=== PATIENT | female | born 1995 | race Hispanic/Latino ===

== ENCOUNTER 2018-07-17 20:15 | Emergency (ER) | payer OTHER ==
--- NOTE | 2018-07-17 21:01 | ER ---
Nurse's Notes [facility] Name: Bc Bermeo Age: 22 yrs Sex: Female : 1995 Arrival Date: 07/17/2018 Time: 20:19 Bed 16 Private MD: Diagnosis: Impetigo Presentation: 07/17 20:38 Presenting complaint: Patient states: I thought I just had a rash and it has been ed1 itching for a couple of days, then when I looked I saw what looks like an infection. Transition of care: patient was not received from another setting of care. Onset of symptoms was July 14, 2018. Risk Assessment: Do you want to hurt yourself or someone else? Patient reports no desire to harm self or others. Initial Sepsis Screen: Does the patient meet any 2 criteria? No. Patient's initial sepsis screen is negative. Does the patient have a suspected source of infection? No. Patient's initial sepsis screen is negative. Care prior to arrival: None. 20:38 Method Of Arrival: Ambulatory ed1 20:38 Acuity: JAKY 4 ed1 Triage Assessment: 20:40 General: Appears in no apparent distress. Behavior is calm, cooperative. Pain: ed1 Complains of pain in right gluteal fold Pain currently is 4 out of 10 on a pain scale. Pain began 2-3 days ago. EENT: No signs and/or symptoms were reported regarding the EENT system. Neuro: Level of Consciousness is awake, alert, obeys commands, Oriented to person, place, time, situation. Cardiovascular: Denies chest pain, Heart tones S1 S2 present. Respiratory: Airway is patent Respiratory effort is even, unlabored, Respiratory pattern is regular, symmetrical, Breath sounds are clear bilaterally. GI: Abdomen is non-distended, Bowel sounds present X 4 quads. : No signs and/or symptoms were reported regarding the genitourinary system. Derm: Skin is healthy with good turgor, Skin is dry, Skin is normal, several scabbed areas with surrounding redness. Musculoskeletal: Circulation, motion, and sensation intact. Range of motion: intact in all extremities. 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 - Social history:: Smoking status: Patient/guardian denies using tobacco. - Ebola Screening: : Patient negative for fever greater than or equal to 101.5 degrees Fahrenheit, and additional compatible Ebola Virus Disease symptoms Patient denies exposure to infectious person Patient denies travel to an Ebola-affected area in the 21 days before illness onset No symptoms or risks identified at this time. Screenin:43 Abuse screen: Denies threats or abuse. Denies injuries from another. Nutritional ed1 screening: No deficits noted. Tuberculosis screening: No symptoms or risk factors identified. Fall Risk None identified. Assessment: 20:43 General: See triage assessment. ed1 21:22 Reassessment: Patient appears in no apparent distress at this time. No changes from ed1 previously documented assessment. Patient and/or family updated on plan of care and expected duration. Pain level reassessed. Patient is alert, oriented x 3, equal unlabored respirations, skin warm/dry/pink. Vital Signs: 20:40 BP 130 / 76; Pulse 95; Resp 18; Temp 97.8; Pulse Ox 100% on R/A; Weight 81.19 kg; ed1 Height 5 ft. 3 in. (160.02 cm); Pain 4/10; 21:22 BP 122 / 76; Pulse 83; Resp 17; Pulse Ox 100% on R/A; Pain 4/10; ed1 20:40 Body Mass Index 31.71 (81.19 kg, 160.02 cm) ed1 ED Course: 20:19 Patient arrived in ED. es 20:27 Rebecca Case FNP-C is PHCP. snw 20:28 Alejandro Dick MD is Attending Physician. snw 20:38 Leslee Green RN is Primary Nurse. ed1 20:39 Triage completed. ed1 20:40 Arm band placed on. ed1 20:43 Awaiting ED provider evaluation. ed1 20:43 Patient has correct armband on for positive identification. Placed in gown. Bed in low ed1 position. Call light in reach. 21:22 No provider procedures requiring assistance completed. Patient did not have IV access ed1 during this emergency room visit. Administered Medications: 21:21 Drug: Clindamycin 300 mg Route: PO; ed1 21: Follow up: Response: Medication administered at discharge. ed1 21: Drug: Hibiclens 4 % 1 application Route: Topical; Site: affected area; ed1 Outcome: 21: Discharge ordered by MD. centeno 21: Discharged to home ambulatory. ed1 : Condition: good 21: Discharge instructions given to patient, Instructed on discharge instructions, follow up and referral plans. Demonstrated understanding of instructions, follow-up care. 21:23 Patient left the ED. ed1 Signatures: Rebecca Case, PULP PLANT SUPERVISOR-C PULP PLANT SUPERVISOR-Csnw Sahra Ribera Erika, RN RN ed1
--- NOTE | 2018-07-17 21:01 | EDPHYS ---
Physician Documentation [facility] Name: Bc Bermeo Age: 22 yrs Sex: Female : 1995 Arrival Date: 07/17/2018 Time: 20:19 Bed 16 Private MD: AFTAB Physician Alejandro Dick HPI: 07/17 21:02 This 22 yrs old Female presents to ER via Ambulatory with complaints of Rash. snw 21:02 The patient's rash thought to be caused by Dermatitis. The rash is located on the right snw gluteal fold and right hamstring. The rash can be described as crusted, patchy, plaque-like. Onset: The symptoms/episode began/occurred suddenly, 3 day(s) ago, and became persistent. Severity of symptoms: At their worst the symptoms were mild in the emergency department the symptoms are unchanged. Treatment given at home: none. The patient has not experienced similar symptoms in the past. It is unknown whether or not the patient has recently seen a physician. 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 - Social history:: Smoking status: Patient/guardian denies using tobacco. - Ebola Screening: : Patient negative for fever greater than or equal to 101.5 degrees Fahrenheit, and additional compatible Ebola Virus Disease symptoms Patient denies exposure to infectious person Patient denies travel to an Ebola-affected area in the 21 days before illness onset No symptoms or risks identified at this time. ROS: 20:59 Constitutional: Negative for fever, chills, and weight loss, Eyes: Negative for injury, snw pain, redness, and discharge, ENT: Negative for injury, pain, and discharge, Neck: Negative for injury, pain, and swelling, Cardiovascular: Negative for chest pain, palpitations, and edema, Respiratory: Negative for shortness of breath, cough, wheezing, and pleuritic chest pain, Abdomen/GI: Negative for abdominal pain, nausea, vomiting, diarrhea, and constipation, Back: Negative for injury and pain, : Negative for injury, bleeding, discharge, and swelling, MS/Extremity: Negative for injury and deformity, Neuro: Negative for headache, weakness, numbness, tingling, and seizure, Psych: Negative for depression, anxiety, suicide ideation, homicidal ideation, and hallucinations. 20:59 Skin: Positive for rash, of the right hamstring and right leg. Exam: 20:58 Constitutional: This is a well developed, well nourished patient who is awake, alert, snw and in no acute distress. Head/Face: Normocephalic, atraumatic. Eyes: Pupils equal round and reactive to light, extra-ocular motions intact. Lids and lashes normal. Conjunctiva and sclera are non-icteric and not injected. Cornea within normal limits. Periorbital areas with no swelling, redness, or edema. ENT: Nares patent. No nasal discharge, no septal abnormalities noted. Tympanic membranes are normal and external auditory canals are clear. Oropharynx with no redness, swelling, or masses, exudates, or evidence of obstruction, uvula midline. Mucous membranes moist. Neck: Trachea midline, no thyromegaly or masses palpated, and no cervical lymphadenopathy. Supple, full range of motion without nuchal rigidity, or vertebral point tenderness. No Meningismus. Chest/axilla: Normal chest wall appearance and motion. Nontender with no deformity. No lesions are appreciated. Cardiovascular: Regular rate and rhythm with a normal S1 and S2. No gallops, murmurs, or rubs. Normal PMI, no JVD. No pulse deficits. Respiratory: Lungs have equal breath sounds bilaterally, clear to auscultation and percussion. No rales, rhonchi or wheezes noted. No increased work of breathing, no retractions or nasal flaring. Abdomen/GI: Soft, non-tender, with normal bowel sounds. No distension or tympany. No guarding or rebound. No evidence of tenderness throughout. Back: No spinal tenderness. No costovertebral tenderness. Full range of motion. MS/ Extremity: Pulses equal, no cyanosis. Neurovascular intact. Full, normal range of motion. Neuro: Awake and alert, GCS 15, oriented to person, place, time, and situation. Cranial nerves II-XII grossly intact. Motor strength 5/5 in all extremities. Sensory grossly intact. Cerebellar exam normal. Normal gait. Psych: Awake, alert, with orientation to person, place and time. Behavior, mood, and affect are within normal limits. 20:58 Skin: Appearance: normal except for affected area, impetigo, on the right gluteal fold and right hamstring. Vital Signs: 20:40 BP 130 / 76; Pulse 95; Resp 18; Temp 97.8; Pulse Ox 100% on R/A; Weight 81.19 kg; ed1 Height 5 ft. 3 in. (160.02 cm); Pain 4/10; 21:22 BP 122 / 76; Pulse 83; Resp 17; Pulse Ox 100% on R/A; Pain 4/10; ed1 20:40 Body Mass Index 31.71 (81.19 kg, 160.02 cm) ed1 MDM: 20:53 Patient medically screened. snw 21:00 Data reviewed: vital signs, nurses notes. Data interpreted: Pulse oximetry: on room air snw is 100 %. Interpretation: normal. Counseling: I had a detailed discussion with the patient and/or guardian regarding: the historical points, exam findings, and any diagnostic results supporting the discharge/admit diagnosis, the need for outpatient follow up, to return to the emergency department if symptoms worsen or persist or if there are any questions or concerns that arise at home. Special discussion: I discussed in detail with the patient the higher chance of wound infection based on his presenting history. Based on the history and exam findings, there is no indication for further emergent testing or inpatient evaluation. I discussed with the patient/guardian the need to see the primary care provider for further evaluation of the symptoms. Administered Medications: 21:21 Drug: Clindamycin 300 mg Route: PO; ed1 21:21 Follow up: Response: Medication administered at discharge. ed1 21:21 Drug: Hibiclens 4 % 1 application Route: Topical; Site: affected area; ed1 Disposition: 07/17/18 21:01 Discharged to Home. Impression: Impetigo. - Condition is Stable. - Discharge Instructions: Impetigo, Pediatric. - Prescriptions for Clindamycin HCl 300 mg Oral Capsule - take 1 capsule by ORAL route every 6 hours for 10 days; 40 capsule. - Medication Reconciliation Form, Thank You Letter, Antibiotic Education, Prescription Opioid Use form. - Follow up: Private Physician; When: 1 week; Reason: Recheck today's complaints, Continuance of care, Re-evaluation by your physician. Follow up: Emergency Department; When: As needed; Reason: Worsening of condition. Signatures: Rebecca Case, NASRA-C LEISURE STUDIES PROFESSOR-Csnw Leslee Green, RN RN ed1 Corrections: (The following items were deleted from the chart) 21:23 21:01 07/17/2018 21:01 Discharged to Home. Impression: Impetigo. Condition is Stable. ed1 Forms are Medication Reconciliation Form, Thank You Letter, Antibiotic Education, Prescription Opioid Use. Follow up: Private Physician; When: 1 week; Reason: Recheck today's complaints, Continuance of care, Re-evaluation by your physician. Follow up: Emergency Department; When: As needed; Reason: Worsening of condition. snw
[2018-07-17] MEDS ORDERED: CLINDAMYCIN HCL 150 MG CAP ONE (21:34)
== END 2018-07-17 21:23 | disposition home or self-care (01) ==
LOC: ER 20:15
DX: L01.00 Impetigo, unspecified (principal); Z91.013 Allergy to seafood
CPT/HCPCS: 99283

== ENCOUNTER 2018-08-16 09:25 | Emergency (ER) | payer OTHER ==
[2018-08-16] MEDS ORDERED: IBUPROFEN 400 MG TAB ONE (10:10)
[2018-08-16] MEDS ORDERED: NA CHLORIDE 0.9% 1,000 ML ONE (10:10)
[2018-08-16] MEDS ORDERED: DEXAMETHASONE 10 MG/ML VIAL ONE (10:10)
--- NOTE | 2018-08-16 10:41 | ER ---
Nurse's Notes [facility] Name: Bc Bermeo Age: 22 yrs Sex: Female : 1995 Arrival Date: 08/16/2018 Time: 09:28 Bed 19 Private MD: Alonzo Arthur Diagnosis: Streptococcal pharyngitis Presentation: 08/16 09:41 Presenting complaint: Patient states: sore throat and body aches since yesterday around em 0200, reports subjective fever and nausea, denies vomiting or diarrhea. Transition of care: patient was not received from another setting of care. Onset of symptoms was August 15, 2018. Risk Assessment: Do you want to hurt yourself or someone else? Patient reports no desire to harm self or others. Initial Sepsis Screen: Does the patient meet any 2 criteria? HR > 90 bpm. No. Patient's initial sepsis screen is negative. Does the patient have a suspected source of infection? Yes: Other: throat. Care prior to arrival: None. 09:41 Method Of Arrival: Ambulatory em 09:47 Acuity: JAKY 3 ss PRIVATE INVESTIGATOR: 09:43 LMP 08/14/2018 em Historical: - Allergies: 09:43 SEAFOOD; em - Home Meds: 09:43 None [Active]; em - PMHx: 09:43 Asthma; HYPOGLYCEMIA; em - PSHx: 09:43 Appendectomy; em - Immunization history:: Adult Immunizations up to date. - Social history:: Smoking status: Patient/guardian denies using tobacco. - Ebola Screening: : Patient negative for fever greater than or equal to 101.5 degrees Fahrenheit, and additional compatible Ebola Virus Disease symptoms Patient denies exposure to infectious person Patient denies travel to an Ebola-affected area in the 21 days before illness onset No symptoms or risks identified at this time. Screenin:45 Abuse screen: Denies threats or abuse. Nutritional screening: No deficits noted. em Tuberculosis screening: No symptoms or risk factors identified. Fall Risk None identified. Assessment: 09:43 General: Appears in no apparent distress. comfortable, Behavior is calm, cooperative, em Reports fever for 12-24 hours. Pain: Complains of pain in throat Pain currently is 9 out of 10 on a pain scale. Neuro: Level of Consciousness is awake, alert, obeys commands, Oriented to person, place, time, situation. Cardiovascular: Capillary refill < 3 seconds Patient's skin is warm and dry. Respiratory: Airway is patent Respiratory effort is even, unlabored, Respiratory pattern is regular, symmetrical, Breath sounds are clear bilaterally. Denies cough, shortness of breath. GI: Abdomen is flat, Reports nausea, Patient currently denies diarrhea, vomiting. EENT: Oral mucosa is moist. Throat is reddened has enlarged tonsils. Derm: Skin is intact, is healthy with good turgor, Skin is pink, warm \T\ dry. Musculoskeletal: Capillary refill < 3 seconds, Range of motion: intact in all extremities. 10:46 Reassessment: Patient appears in no apparent distress at this time. Patient and/or em family updated on plan of care and expected duration. Pain level reassessed. Patient is alert, oriented x 3, equal unlabored respirations, skin warm/dry/pink. Patient states feeling better. 11:00 Reassessment: became nauseated after Rocephin IV, provider notified, new medication em orders received. Vital Signs: 09:43 BP 123 / 85; Pulse 131; Resp 20; Temp 100.0(O); Pulse Ox 100% on R/A; Weight 81.65 kg; em Height 5 ft. 0 in. (152.40 cm); Pain 9/10; 10:48 BP 104 / 72; Pulse 106; Resp 18; Pulse Ox 99% on R/A; em 09:43 Body Mass Index 35.15 (81.65 kg, 152.40 cm) em ED Course: 09:28 Patient arrived in ED. as 09:28 Alonzo Arthur MD is Private Physician. as 09:35 [facility] kb 09:35 Kolby Hatch MD is Attending Physician. kb 09:36 Negro Chung LVN is Primary Nurse. em 09:43 Arm band placed on. em 09:45 Patient has correct armband on for positive identification. Bed in low position. Call em light in reach. Adult w/ patient. Pulse ox on. NIBP on. 09:47 Triage completed. ss 10:00 Initial lab(s) drawn, by me, sent to lab. Strep swab sent to lab. Inserted saline lock: em 22 gauge in right antecubital area, using aseptic technique. Blood collected. 11:22 No provider procedures requiring assistance completed. IV discontinued, intact, em bleeding controlled, No redness/swelling at site. Pressure dressing applied. Administered Medications: 10:05 Drug: Decadron - Dexamethasone 10 mg Route: IVP; Site: right antecubital; ss 10:50 Follow up: Response: No adverse reaction; Marked relief of symptoms; Pain is decreased em 10:05 Drug: NS 0.9% 1000 ml Route: IV; Rate: 1000 ml; Site: right antecubital; ss 11:09 Follow up: IV Status: Completed infusion; IV Intake: 1000ml em 10:05 Drug: Ibuprofen 800 mg Route: PO; ss 11:09 Follow up: Response: No adverse reaction; Marked relief of symptoms; Pain is decreased em 10:57 Drug: Rocephin 1 grams Route: IV; Rate: calculated rate; Site: right antecubital; ss 11:10 Follow up: Response: No adverse reaction; IV Status: Completed infusion; IV Intake: 10mlem 11:05 Not Given (Patient Refused): GI Cocktail without - (Maalox Suspension 30 ml, ss Lidocaine Liquid 2 % 15 ml) PO once 11:05 Drug: Zofran 4 mg Route: IVP; Site: right antecubital; ss 11:21 Follow up: Response: No adverse reaction; Nausea is decreased em Intake: 11:09 IV: 1000ml; Total: 1000ml. em 11:10 IV: 10ml; Total: 1010ml. em Outcome: 10:40 Discharge ordered by MD. larsen 11:25 Discharged to home ambulatory. em 11:25 Condition: good 11:25 Discharge instructions given to patient, Instructed on discharge instructions, follow up and referral plans. medication usage, Demonstrated understanding of instructions, follow-up care, medications, Prescriptions given X 1. 11:25 Patient left the ED. em Signatures: Janis Alatorre, NASRA-C SPECIAL EDUCATION EDUCATIONAL ASSISTANT-Negro Rodney, MATHEMATICAL SCIENCES PROFESSOR MATHEMATICAL SCIENCES PROFESSOR em Karlene Craft Shelby, RN RN ss
--- NOTE | 2018-08-16 10:41 | EDPHYS ---
Physician Documentation [facility] Name: Bc Bermeo Age: 22 yrs Sex: Female : 1995 Arrival Date: 08/16/2018 Time: 09:28 Bed 19 Private MD: Alonzo Arthur ED Physician Kolby Hatch HPI: 08/16 10:15 This 22 yrs old Female presents to ER via Ambulatory with complaints of Sore kb Throat, Pain All Over. 10:15 The patient presents with sore throat. The patient describes throat pain as constant. kb Onset: The symptoms/episode began/occurred yesterday. Severity of symptoms: At their worst the symptoms were moderate, in the emergency department the symptoms are unchanged. Modifying factors: The symptoms are alleviated by nothing, the symptoms are aggravated by swallowing, Patient's oral intake status: limited fluid intake, limited food intake, unaware of sick contact. Associated signs and symptoms: Pertinent positives: fever, flu-like symptoms, myalgias, Sore throat. The patient has not experienced similar symptoms in the past. The patient has not recently seen a physician. HOME HEALTH RN: 09:43 LMP 08/14/2018 em Historical: - Allergies: 09:43 SEAFOOD; em - Home Meds: 09:43 None [Active]; em - PMHx: 09:43 Asthma; HYPOGLYCEMIA; em - PSHx: 09:43 Appendectomy; em - Immunization history:: Adult Immunizations up to date. - Social history:: Smoking status: Patient/guardian denies using tobacco. - Ebola Screening: : Patient negative for fever greater than or equal to 101.5 degrees Fahrenheit, and additional compatible Ebola Virus Disease symptoms Patient denies exposure to infectious person Patient denies travel to an Ebola-affected area in the 21 days before illness onset No symptoms or risks identified at this time. ROS: 10:13 Neck: Negative for injury, pain, and swelling, Cardiovascular: Negative for chest pain, kb palpitations, and edema, Respiratory: Negative for shortness of breath, cough, wheezing, and pleuritic chest pain, Abdomen/GI: Negative for abdominal pain, nausea, vomiting, diarrhea, and constipation, Back: Negative for injury and pain, MS/Extremity: Negative for injury and deformity, Skin: Negative for injury, rash, and discoloration. 10:13 Constitutional: Positive for body aches, chills, fatigue, fever, malaise, Negative for poor PO intake, weight loss. 10:13 ENT: Positive for sore throat. 10:13 Neuro: Positive for headache. Exam: 10:14 Constitutional: This is a well developed, well nourished patient who is awake, alert, kb and in no acute distress. Head/Face: Normocephalic, atraumatic. Chest/axilla: Normal chest wall appearance and motion. Nontender with no deformity. No lesions are appreciated. Cardiovascular: Regular rate and rhythm with a normal S1 and S2. No gallops, murmurs, or rubs. Normal PMI, no JVD. No pulse deficits. Respiratory: Lungs have equal breath sounds bilaterally, clear to auscultation and percussion. No rales, rhonchi or wheezes noted. No increased work of breathing, no retractions or nasal flaring. Abdomen/GI: Soft, non-tender, with normal bowel sounds. No distension or tympany. No guarding or rebound. No evidence of tenderness throughout. Skin: Warm, dry with normal turgor. Normal color with no rashes, no lesions, and no evidence of cellulitis. MS/ Extremity: Pulses equal, no cyanosis. Neurovascular intact. Full, normal range of motion. Neuro: Awake and alert, GCS 15, oriented to person, place, time, and situation. Cranial nerves II-XII grossly intact. Motor strength 5/5 in all extremities. Sensory grossly intact. Cerebellar exam normal. Normal gait. 10:14 ENT: Posterior pharynx: Airway: normal, Tonsils: bilaterally enlarged, with erythema, Uvula: normal, midline, swelling, that is marked, erythema, that is marked. Vital Signs: 09:43 BP 123 / 85; Pulse 131; Resp 20; Temp 100.0(O); Pulse Ox 100% on R/A; Weight 81.65 kg; em Height 5 ft. 0 in. (152.40 cm); Pain 9/10; 10:48 BP 104 / 72; Pulse 106; Resp 18; Pulse Ox 99% on R/A; em 09:43 Body Mass Index 35.15 (81.65 kg, 152.40 cm) em MDM: 09:36 Patient medically screened. kb 10:13 Data reviewed: vital signs, nurses notes. Data interpreted: Pulse oximetry: on room air kb is 100 %. Interpretation: normal. 10:39 Counseling: I had a detailed discussion with the patient and/or guardian regarding: the kb historical points, exam findings, and any diagnostic results supporting the discharge/admit diagnosis, lab results, the need for outpatient follow up, a family practitioner, to return to the emergency department if symptoms worsen or persist or if there are any questions or concerns that arise at home. 08/16 09:53 Order name: Strep; Complete Time: 10:25 kb 08/16 09:53 Order name: [place] Screen Profile; Complete Time: 10:39 kb 08/16 08:53 Order name: IV Start; Complete Time: 10: kb Administered Medications: 10:05 Drug: Decadron - Dexamethasone 10 mg Route: IVP; Site: right antecubital; ss 10:50 Follow up: Response: No adverse reaction; Marked relief of symptoms; Pain is decreased em 10:05 Drug: NS 0.9% 1000 ml Route: IV; Rate: 1000 ml; Site: right antecubital; ss 11:09 Follow up: IV Status: Completed infusion; IV Intake: 1000ml em 10:05 Drug: Ibuprofen 800 mg Route: PO; ss 11:09 Follow up: Response: No adverse reaction; Marked relief of symptoms; Pain is decreased em 10:57 Drug: Rocephin 1 grams Route: IV; Rate: calculated rate; Site: right antecubital; ss 11:10 Follow up: Response: No adverse reaction; IV Status: Completed infusion; IV Intake: 10mlem 11:05 Not Given (Patient Refused): GI Cocktail without - (Maalox Suspension 30 ml, ss Lidocaine Liquid 2 % 15 ml) PO once 11:05 Drug: Zofran 4 mg Route: IVP; Site: right antecubital; ss 11:21 Follow up: Response: No adverse reaction; Nausea is decreased em Disposition: 15:10 Co-signature as Attending Physician, Kolby Hatch MD. rn Disposition: 08/16/18 10:40 Discharged to Home. Impression: Streptococcal pharyngitis. - Condition is Stable. - Discharge Instructions: Strep Throat, Sgar-vk-Fyni. - Prescriptions for Augmentin 875- 125 mg Oral Tablet - take 1 tablet by ORAL route every 12 hours for 10 days; 20 tablet. - Work release form, Medication Reconciliation Form, Thank You Letter, Antibiotic Education, Prescription Opioid Use form. - Follow up: Emergency Department; When: As needed; Reason: Worsening of condition. Follow up: Private Physician; When: 2 - 3 days; Reason: Recheck today's complaints, Continuance of care, Re-evaluation by your physician. Signatures: Dispatcher [employer] EDVT Janis Alatorre, NITROGLYCERIN NEUTRALIZER-C NITROGLYCERIN NEUTRALIZER-Negro Rodney, PULMONARY FUNCTION TECHNOLOGIST PULMONARY FUNCTION TECHNOLOGIST em Kolby Hatch MD MD rn Marimar Castillo RN RN ss Corrections: (The following items were deleted from the chart) 11:25 10:40 08/16/2018 10:40 Discharged to Home. Impression: Streptococcal pharyngitis. em Condition is Stable. Forms are Medication Reconciliation Form, Thank You Letter, Antibiotic Education, Prescription Opioid Use. Follow up: Emergency Department; When: As needed; Reason: Worsening of condition. Follow up: Private Physician; When: 2 - 3 days; Reason: Recheck today's complaints, Continuance of care, Re-evaluation by your physician. kb
[2018-08-16] MEDS ORDERED: MAGNE/ALUM HYDROXD 30 ML UCUP ONE (10:43)
[2018-08-16] MEDS ORDERED: LIDOCAINE VISCOUS 2% SOLN 15 ML UDC ONE (10:43)
[2018-08-16] MEDS ORDERED: CEFTRIAXONE/SWI 1gm 1 GM/10 ML SYR ONE (11:08)
[2018-08-16] MEDS ORDERED: ONDANSETRON 4 MG/2 ML VIAL ONE (11:17)
== END 2018-08-16 11:25 | disposition home or self-care (01) ==
LOC: ER 09:25
DX: J02.0 Streptococcal pharyngitis (principal); J45.909 Unspecified asthma, uncomplicated; Z91.013 Allergy to seafood
CPT/HCPCS: 36415; 86308; 87081; 96361; 96374; 96375; 99284; J0696; J1100; J2405; J7030

== ENCOUNTER 2020-06-24 08:39 | Emergency (ER) | payer BC, OTHER ==
[2020-06-24 09:11] LABS: Urine Blood 2+ (Negative); Urine Glucose Negative (Negative); Urine Protein Trace (Negative); Urine Specific Gravity >=1.030 (1.005-1.030); Urine pH 5.5 (5.0-7.0)
[2020-06-24 09:14] LABS: Absolute Lymphocytes (CBC) 1.6 K/uL (0.7-4.9); Basophils % 0.9 % (0-1.3); Lymphocytes % 16.4 % (15.3-44.8); MPV 8.8 fL (7.6-11.3); RBC Red Blood Cell Count 4.37 M/uL (3.86-4.86)
[2020-06-24] MEDS ORDERED: NA CHLORIDE 0.9% 1,000 ML ONE (09:15)
[2020-06-24 09:47] LABS: Potassium 3.6 mmol/L (3.5-5.1)
--- NOTE | 2020-06-24 10:14 | EDPHYS ---
Physician Documentation [facility] Name: Bc Bermeo Age: 24 yrs Sex: Female : 1995 Arrival Date: 06/24/2020 Time: 08:43 Bed 15 Private MD: ED Physician Sherif Hinds HPI: 06/24 10:07 This 24 yrs old Female presents to ER via Ambulatory with complaints of omar Vaginal Bleeding, + Preg <12wks. 10:07 The patient presents to the emergency department with vaginal bleeding, that is light. omar The estimated gestational age is 6 weeks. course: care: private OB physician, Dr. PERRY. Associated signs and symptoms: The patient has no apparent associated signs or symptoms. The patient has not experienced similar symptoms in the past. 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 - Social history:: Smoking status: Patient denies any tobacco usage or history of. ROS: 10:08 Constitutional: Negative for fever, chills, and weight loss, Eyes: Negative for injury, omar pain, redness, and discharge, ENT: Negative for injury, pain, and discharge, Neck: Negative for injury, pain, and swelling, Cardiovascular: Negative for chest pain, palpitations, and edema, Respiratory: Negative for shortness of breath, cough, wheezing, and pleuritic chest pain, Back: Negative for injury and pain, : Negative for injury, bleeding, discharge, and swelling, MS/Extremity: Negative for injury and deformity, Skin: Negative for injury, rash, and discoloration, Neuro: Negative for headache, weakness, numbness, tingling, and seizure, Psych: Negative for depression, anxiety, suicide ideation, homicidal ideation, and hallucinations, Allergy/Immunology: Negative for hives, rash, and allergies, Endocrine: Negative for neck swelling, polydipsia, polyuria, polyphagia, and marked weight changes, Hematologic/Lymphatic: Negative for swollen nodes, abnormal bleeding, and unusual bruising. 10:08 : Positive for vaginal bleeding. Exam: 10:08 Constitutional: This is a well developed, well nourished patient who is awake, alert, omar and in no acute distress. Head/Face: Normocephalic, atraumatic. Eyes: Pupils equal round and reactive to light, extra-ocular motions intact. Lids and lashes normal. Conjunctiva and sclera are non-icteric and not injected. Cornea within normal limits. Periorbital areas with no swelling, redness, or edema. ENT: Nares patent. No nasal discharge, no septal abnormalities noted. Tympanic membranes are normal and external auditory canals are clear. Oropharynx with no redness, swelling, or masses, exudates, or evidence of obstruction, uvula midline. Mucous membranes moist. Neck: Trachea midline, no thyromegaly or masses palpated, and no cervical lymphadenopathy. Supple, full range of motion without nuchal rigidity, or vertebral point tenderness. No Meningismus. Chest/axilla: Normal chest wall appearance and motion. Nontender with no deformity. No lesions are appreciated. Cardiovascular: Regular rate and rhythm with a normal S1 and S2. No gallops, murmurs, or rubs. Normal PMI, no JVD. No pulse deficits. Respiratory: Lungs have equal breath sounds bilaterally, clear to auscultation and percussion. No rales, rhonchi or wheezes noted. No increased work of breathing, no retractions or nasal flaring. Abdomen/GI: Soft, non-tender, with normal bowel sounds. No distension or tympany. No guarding or rebound. No evidence of tenderness throughout. Back: No spinal tenderness. No costovertebral tenderness. Full range of motion. Skin: Warm, dry with normal turgor. Normal color with no rashes, no lesions, and no evidence of cellulitis. MS/ Extremity: Pulses equal, no cyanosis. Neurovascular intact. Full, normal range of motion. Neuro: Awake and alert, GCS 15, oriented to person, place, time, and situation. Cranial nerves II-XII grossly intact. Motor strength 5/5 in all extremities. Sensory grossly intact. Cerebellar exam normal. Normal gait. Psych: Awake, alert, with orientation to person, place and time. Behavior, mood, and affect are within normal limits. Vital Signs: 08:49 BP 119 / 71; Pulse 103; Resp 14; Pulse Ox 100% on R/A; Weight 79.83 kg; Height 5 ft. 3 ss in. (160.02 cm); Pain 0/10; 10:57 BP 122 / 76; Pulse 98; Resp 16; Pulse Ox 99% ; vg1 08:49 Body Mass Index 31.18 (79.83 kg, 160.02 cm) ss MDM: 08:53 Patient medically screened. [facility] 06/24 08:54 Order name: Quantitative Hcg; Complete Time: 10:07 omar 06/24 08:54 Order name: Abo/rh Typing; Complete Time: 10:07 oamr 06/24 08:54 Order name: Basic Metabolic Panel; Complete Time: 10:07 omar 06/24 08:54 Order name: CBC with Diff; Complete Time: 10:07 omar 06/24 09:11 Order name: Urine Dipstick-Ancillary; Complete Time: 10:07 EDMS 06/24 09:37 Order name: Urine --Ancillary (enter results); Complete Time: 10:07 eb 06/24 08:54 Order name: Urine Test (obtain specimen); Complete Time: 09:50 omar 06/24 08:54 Order name: IV Saline Lock; Complete Time: 09:50 [facility] 06/24 08:54 Order name: Labs collected and sent; Complete Time: 09:50 omar 06/24 08:54 Order name: NPO; Complete Time: 09:50 [facility] 06/24 08:54 Order name: Urine Dipstick-Ancillary (obtain specimen); Complete Time: 09:51 [facility] 06/24 08:54 Order name: US Transvaginal Ob [facility] 06/24 10:20 Order name: ABO/RH no charge EDMS Administered Medications: 09:00 Drug: NS 0.9% 1000 ml Route: IV; Rate: 1 bolus; Site: right antecubital; jl7 10:58 Follow up: IV Status: Completed infusion; IV Intake: 1000ml vg1 Point of Care Testing: Urine : 09:00 hCG Reading: Positive; Control Reading: Positive; jl7 Disposition: 06/24/20 10:13 Discharged to Home. Impression: Threatened - 6 Weeks. - Condition is Stable. - Discharge Instructions: Threatened Miscarriage, Vaginal Bleeding During , First Trimester, First Trimester of , [id number], First Trimester of , Threatened Miscarriage, Bcsx-mi-Jmwn, Pelvic Rest. - Prescriptions for Vitamin 27- 0.8 mg Oral Tablet - take 1 tablet by ORAL route once daily; 30 tablet. - Medication Reconciliation Form, Thank You Letter, Antibiotic Education, Prescription Opioid Use form. - Follow up: Eber Perry MD; When: 2 - 3 days; Reason: Recheck today's complaints, Continuance of care, Re-evaluation by your physician. - Problem is new. - Symptoms have improved. Signatures: Dispatcher [employer] EDMS Sherif Hinds MD MD cha Smirch, Shelby, RN RN ss Erin Fields RN RN jl7 Radha Eden RN RN vg1 Corrections: (The following items were deleted from the chart) 10:58 10:13 06/24/2020 10:13 Discharged to Home. Impression: Threatened - 6 Weeks. vg1 Condition is Stable. Forms are Medication Reconciliation Form, Thank You Letter, Antibiotic Education, Prescription Opioid Use. Follow up: Eber Perry; When: 2 - 3 days; Reason: Recheck today's complaints, Continuance of care, Re-evaluation by your physician. Problem is new. Symptoms have improved. omar
--- NOTE | 2020-06-24 10:14 | ER ---
Nurse's Notes [facility] Name: Bc Bermeo Age: 24 yrs Sex: Female : 1995 Arrival Date: 06/24/2020 Time: 08:43 Bed 15 Private MD: Diagnosis: Threatened -6 Weeks Presentation: 06/24 08:49 Chief complaint: Patient states: Vaginal bleeding "like a period" that started ss yesterday afternoon. Pt reports that she is 6 weeks . Coronavirus screen: Client denies travel out of the [place] in the last 14 days. Ebola Screen: Patient denies exposure to infectious person. Patient denies travel to an Ebola-affected area in the 21 days before illness onset. Initial Sepsis Screen: Does the patient meet any 2 criteria? No. Patient's initial sepsis screen is negative. Does the patient have a suspected source of infection? No. Patient's initial sepsis screen is negative. Risk Assessment: Do you want to hurt yourself or someone else? Patient reports no desire to harm self or others. Onset of symptoms was June 23, 2020. 08:49 Method Of Arrival: Ambulatory ss 08:49 Acuity: JAKY 3 ss Triage Assessment: 09:00 General: Appears in no apparent distress. 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 - Social history:: Smoking status: Patient denies any tobacco usage or history of. Screenin:00 Abuse screen: Denies threats or abuse. Denies injuries from another. Nutritional jl7 screening: No deficits noted. Tuberculosis screening: No symptoms or risk factors identified. Fall Risk IV access (20 points). Total Miles Fall Scale indicates No Risk (0-24 pts). Assessment: 09:00 Obstetrical Assessment: General assessment: awake and alert, Patient reports abdominal jl7 cramping. General: Appears in no apparent distress. uncomfortable, Behavior is calm, cooperative, appropriate for age. Pain: Complains of pain in right lower quadrant and left lower quadrant Pain does not radiate. Pain currently is 2 out of 10 on a pain scale. Quality of pain is described as crampy, Pain began 1 day ago. Is continuous. Neuro: Level of Consciousness is awake, alert, obeys commands, Oriented to person, place, time, situation. Cardiovascular: Patient's skin is warm and dry. Respiratory: Airway is patent Respiratory effort is even, unlabored, Respiratory pattern is regular, symmetrical. GI: Abdomen is non-distended. : Urine is clear, Reports vaginal bleeding that is bright red, Denies burning with urination. Derm: Skin is pink, warm \\T\\ dry. 10:57 Reassessment: Patient appears in no apparent distress at this time. Patient and/or vg1 family updated on plan of care and expected duration. Pain level reassessed. Patient is alert, oriented x 3, equal unlabored respirations, skin warm/dry/pink. Vital Signs: 08:49 BP 119 / 71; Pulse 103; Resp 14; Pulse Ox 100% on R/A; Weight 79.83 kg; Height 5 ft. 3 ss in. (160.02 cm); Pain 0/10; 10:57 BP 122 / 76; Pulse 98; Resp 16; Pulse Ox 99% ; vg1 08:49 Body Mass Index 31.18 (79.83 kg, 160.02 cm) ss Vitals: 09:48 Heart Tones N/A. jl7 ED Course: 08:43 Patient arrived in ED. ds1 08:50 Triage completed. ss 08:51 Arm band placed on right wrist. ss 08:53 Sherif Hnids MD is Attending Physician. omar 08:56 Erin Fields RN is Primary Nurse. jl7 09:00 Patient has correct armband on for positive identification. Placed in gown. Bed in low jl7 position. Call light in reach. Side rails up X 1. Pulse ox on. NIBP on. Warm blanket given. 09:00 Initial lab(s) drawn, by me, sent to lab. T\\T\\S collected, blood band applied to patient. jl7 Inserted saline lock: 20 gauge in right antecubital area, using aseptic technique. Blood collected. 10:03 Transvaginal Ob In Process Unspecified. EDMO 10:13 Eber Perry MD is Referral Physician. [facility] 10:58 No provider procedures requiring assistance completed. IV discontinued, intact, vg1 bleeding controlled, No redness/swelling at site. Pressure dressing applied. Administered Medications: 09:00 Drug: NS 0.9% 1000 ml Route: IV; Rate: 1 bolus; Site: right antecubital; 7 10:58 Follow up: IV Status: Completed infusion; IV Intake: 1000ml vg1 Point of Care Testing: Urine : 09:00 hCG Reading: Positive; Control Reading: Positive; jl7 Intake: 10:58 IV: 1000ml; Total: 1000ml. vg1 Outcome: 10:13 Discharge ordered by . [facility] 10:58 Discharged to home ambulatory. vg1 10:58 Condition: stable 10:58 Discharge instructions given to patient, Instructed on discharge instructions, follow up and referral plans. medication usage, Demonstrated understanding of instructions, follow-up care, medications, Prescriptions given X 1. 10:58 Patient left the ED. vg1 Signatures: Dispatcher [employer] EDMO Sherif Hinds MD MD cha Sanford, Demi ds1 Marimar Castillo, Erin Ghosh RN, RN RN [email or web address] Radha Eden, RN RN vg1
--- NOTE | 2020-06-24 10:36 | RAD REPORT ---
EXAM DESCRIPTION: US - Transvaginal OB - 06/24/2020 10:04 am CLINICAL HISTORY: Abd cramping, ;Abd pain COMPARISON: No comparisons FINDINGS: A single gestational sac is seen within the uterus. The shape of the sac is within normal limits for gestational age. Within the sac is a single pole with crown-rump length of 4 mm, cor relating to estimated gestational age of 6 weeks 1 day. Estimated date of delivery is 02/16/2021. Heart rate is 97 BPM. The placenta is not yet developed due to early gestational age. There is a 9 x 8 mm inferior subchori onic bleed. The maternal adnexa and ovaries are within normal limits. Normal Doppler blood flow was demonstrated to both ovaries. IMPRESSION: Single live early intrauterine gestation with estimated gestational age of 6 weeks 1 day , VIDA 02/16/2021. Small 9 x 8 mm inferior subchorionic bleed.
[2020-06-24 11:08] VITALS: BP 122/76; O2SAT 99
== END 2020-06-24 10:58 | disposition home or self-care (01) ==
LOC: ER 08:39
DX: O20.0 Threatened abortion (principal); Z3A.01 Less than 8 weeks gestation of pregnancy; O99.511 Diseases of the respiratory system complicating pregnancy, first trimester; J45.909 Unspecified asthma, uncomplicated
CPT/HCPCS: 85025; 80048; 36415; 86900; 81025; 86901; 84702; 81003; 76817; J7030; 96360; 96361; 99284

== ENCOUNTER 2020-12-05 16:20 | Inpatient (IN) | payer BC ==
[2020-12-05] MEDS ORDERED: BUTORPHANOL 1 MG/ML INJ IV PRN (16:52)
[2020-12-05] MEDS ORDERED: ZOLPIDEM TARTRATE 10 MG TABLET PO PRN (16:52)
[2020-12-05] MEDS ORDERED: PROMETHAZINE INJ 25 MG/ML AMP IM PRN (17:19)
--- NOTE | 2020-12-05 17:35 | RAD REPORT ---
EXAM DESCRIPTION: US - OB Limited - 12/05/2020 5:20 pm CLINICAL HISTORY: . Possible demise. COMPARISON: June 2020 FINDINGS: A limited examination performed to assess viability. Breech presentation Cardiac activity is not identified IMPRESSION: demise
[2020-12-05] MEDS ORDERED: Ringers Lactate 1,000 ML IV SCH (18:00)
[2020-12-05] MEDS: miSOPROStoL 100 MCG TAB VAG SCH ×2 (18:25→22:29)
[2020-12-05 19:10] LABS: Absolute Lymphocytes (CBC) 1.4 K/uL (0.7-4.9); Basophils % 0.3 % (0-1.3); Hematocrit 35.3 % (36.0-45.0); MPV 9.2 fL (7.6-11.3); RBC Red Blood Cell Count 3.78 M/uL (3.86-4.86)
--- NOTE | 2020-12-05 19:37 | PREOPHP ---
Date of Admission: 12/05/2020 History Of Present Illness: A 25-year-old, primigravida, at 29 weeks 3 days, was seen by Dr. Avery, high-at risk paraprofessional in [place] today. Baby was noted to be demise, breech presentation. No obvious problems. Normal amount of amniotic fluid. 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 H er partner refused to be tested and she declined amniocentesis. She was sent to see if there was any thing that the high-risk people could detect. As stated, a diagnosis of demise and sent her to us. The patient initially stated that she wanted , but I have talked the patient, her signi ficant other and her mother and they noted that I have said it is probably not the best thing to proc eed with , but if she wishes, we would. We discussed blood loss, anesthetic complications, f uture surgeries, and risk involved with multiple cesareans. The patient then stated she would go ahe ad and try to deliver vaginally. I think that is for the best. Family History: Noncontributory. Past Medical History: She has had an appendectomy. Allergies: ALLERGIC TO SHELLFISH. Medications: She has been on medicines for depression in the past. Social History: Does not smoke. Physical Examination: HEENT: Clear. Pupils equal, round, and reactive to light and accommodation. Conjunctivae well perf used. No oral, lingual, or buccal lesions. Chest and Lungs: Clear. Heart: Without murmurs, thrills, heaves, or rubs. Breasts: Not examined. Abdomen: Appropriate for the stage of gestation. Extremities: Clear without edema, cyanosis, or clubbing. Assessment And Plan: We will proceed with Cytotec for labor induction and cervical ripening. We frantz l send the placenta to pathology. The patient knows that [facility] requires that she either bur ry the baby or have the baby cremated. Whether she wants an autopsy, we will decide at the time of andree hendrickson. We will run torch screen and cultures on the placenta. Right now though she has no uterine tenderness, no signs of intraamniotic infection. She knows that at least half a cases of kale se, the etiology is never determined. GARRET/DEANN Voice ID: [id number]
[2020-12-06 02:02] LABS: RPR (Rapid Plasma Reagin) NON-REACT (NON-REACT)
[2020-12-06] MEDS: miSOPROStoL 100 MCG TAB VAG SCH (02:26)
[2020-12-06] MEDS ORDERED: CEFAZOLIN SODIUM 1 GM/VIAL ONE (07:45)
[2020-12-06] MEDS ORDERED: NA CHLORIDE 0.9% 100 ML ONE (07:45)
[2020-12-06] MEDS ORDERED: METOCLOPRAMIDE 10 MG/2mL INJ ONE (07:49)
[2020-12-06] MEDS ORDERED: NA CIT/CITRIC AC 30 ML ORAL UDC ONE (07:49)
[2020-12-06] MEDS ORDERED: METHYLERGONOVINE 0.2MG/ML AMP IM ONE (07:51)
[2020-12-06] MEDS ORDERED: FAMOTIDINE 20 MG/2 ML VIAL IV ONE (07:51)
[2020-12-06 07:58] LABS: Urine Appearance CLEAR (Clear); Urine Bilirubin NEGATIVE (Negative); Urine Blood NEGATIVE (Negative); Urine Color YELLOW (Yellow); Urine Glucose NEGATIVE (Negative); Urine Protein NEGATIVE (Negative); Urine Urobilinogen 0.2 mg/dL (0.2-1.0)
[2020-12-06] MEDS ORDERED: MORPHINE SULFATE/PF 1 MG/ML (10 ML AMP) ONE (07:59)
[2020-12-06] MEDS ORDERED: BUPIVACAINE 0.75% (PF) 2 ML SP ONE (07:59)
[2020-12-06] MEDS ORDERED: LIDOCAINE 1.5% W/EPI AMP 5 ML ONE (07:59)
[2020-12-06 08:00] LABS: Urine Microscopic Reflex NO UMIC
[2020-12-06] MEDS ORDERED: MIDAZOLAM HCL 2 MG/2 ML INJ ONE (08:04)
[2020-12-06] MEDS ORDERED: OXYTOCIN 10 UNIT/ML ML ONE ×2 (08:08→08:53)
[2020-12-06] MEDS ORDERED: Phenylephrine HCl 10 MG/ML 1 ML VIAL ONE (08:50)
[2020-12-06] MEDS ORDERED: ONDANSETRON 4 MG/2 ML VIAL ONE (09:13)
[2020-12-06] MEDS ORDERED: IBUPROFEN 200 MG TAB PO PRN (09:14)
[2020-12-06] MEDS ORDERED: ACETAMINOPHEN 500 MG TAB PO PRN ×2 (09:14)
[2020-12-06] MEDS ORDERED: KETOROLAC 30 MG/ML INJ IM PRN (09:14)
[2020-12-06] MEDS ORDERED: ONDANSETRON 4 MG (ODT) TAB PO PRN (09:14)
[2020-12-06] MEDS ORDERED: DIPHENHYDRAMINE 25 MG TAB/CAP PO PRN (09:14)
[2020-12-06] MEDS ORDERED: CEFAZOLIN 1GM (PREMIX IV) 1 GM/50 ML BAG IV ONE ×2 (09:14→17:00)
[2020-12-06] MEDS ORDERED: Oxycodone HCl/Acetaminophen 1 TAB TAB PO PRN ×2 (09:14)
[2020-12-06] MEDS ORDERED: BISACODYL 10 MG RECTAL SUPP PR PRN (09:14)
[2020-12-06] MEDS ORDERED: ONDANSETRON 4 MG/2 ML VIAL IV PRN (09:14)
[2020-12-06] MEDS ORDERED: OXYTOCIN/LR 20 UNIT/1,000 ML BAG IV SCH (10:00)
[2020-12-06] MEDS ORDERED: D5LR 1,000 ML with OXYTOCIN 20 UNIT IV SCH ×2 (10:00)
[2020-12-06 10:03] VITALS: BMI 32.9
--- NOTE | 2020-12-06 10:20 | PREOPHP ---
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 declined testing. It was sent to [place] for evalua tion by Dr. Avery, high-risk tech who noted the baby was breech and stillborn. She was sent b ack here. Our ultrasound demonstrated also a stillborn . Initially, the patient requested kyle arean section, but after discussion with the patient and family, they decided to try to proceed with vaginal delivery attempt. She has had 3 doses of 100 mcg of Cytotec. She says she is in severe pain , but has shown no cervical change and is extremely resistant to pelvic exams. This morning, she is again requesting . Once again, I told her that this is probably not the best thing to do, bu t the patient and family insistent. Infection; blood loss; anesthetic complications; injury to bladd er, bowel, ureter; postoperative complications; clots in legs; and pneumonia discussed. She knows fu lly well future babies will probably come and the risk for complication goes up with each ce sarean. Past Medical History: No serious medical illnesses. Past Surgical History: The patient has had an appendectomy. Allergies: ALLERGIC TO SHELLFISH. Medications: Has history of depression, but not currently on any medications. Social History: Does not smoke. Physical Examination: HEENT: Clear. Pupils equal, round, and reactive to light and accommodation. Conjunctivae well perf used. No oral, lingual, or buccal lesions. Chest and Lungs: Clear. Heart: Without murmurs, thrills, heaves, or rubs. Breasts: Without masses. Extremities: Clear without edema, cyanosis, or clubbing. Pelvic Exam: Cervix is fingertip. Baby is breech and still very high in the pelvis. Assessment And Plan: We will proceed at the patient's request with section for delivery. GARRET/DEANN Voice ID: [id number]
--- NOTE | 2020-12-06 10:39 | OP ---
Surgeon: Eber Perry MD Procedure In Detail: A 25-year-old, primigravida, 29 weeks and 2-3 days and diagnosis of demis e. Breech presentation was made. The patient was a carrier for SMA. Partner never got tested. She declined amniocentesis and then yesterday in [place], was noted to have stillborn on high risk ultra sound assessment, Dr. Avery. Initially requested , then agreed to a vaginal delivery attem pt. After 3-4 doses of Cytotec, the patient states that she would not receive any more Cytotec and w anted to have a . This is thoroughly discussed and advised against, but the patient was insi stent. Infection; blood loss; anesthetic complications; injury to bladder, bowel, ureter; postoperat yolande complications; clots in legs; and pneumonia discussed. The patient knows fully well this does no t constitute all the possible problems that could occur during or following surgery. Spinal block an esthesia was performed and then time-out. A Pfannenstiel incision was created. The incision was car ried to the fascia. The fascia incised and incision carried transversely bilaterally. Anterior and posterior fascial planes were developed with both blunt and sharp dissection. Underlying rectus musc le . Peritoneum entered. Retraction was applied. Low transverse bladder flap created. Lo w transverse uterine incision created. The placenta was immediately underneath. The baby was delive red from a breech presentation, appeared to have a torsion of the cord right next to the body. Other domíngeuz, the baby seen typically was normal. Uterus cleared of clot and blood and exteriorized. Cervic al os dilated with ring clamp. Uterus closed with a running locked stitch of 1 chromic followed by 2 -3 stitches in the right angle for complete hemostasis. Estimated blood loss during the procedure 50 0 mL. Gutters clear of clot and blood. Uterus replaced in the peritoneal cavity. Inspection of sut ure line showed no further bleeding. Muscles were reapproximated using 2 sutures of 0 Vicryl, then 1 Vicryl was used to close the fascia running from either angle to the midline. Subcutaneous tissue w as closed with 2-0 plain. Denilson used for the skin. The patient had been given 2 g of Ancef. Tole rated all procedures well. 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 GARRET/DEANN Voice ID: [id number] Report ID: [id number]
[2020-12-06] MEDS ORDERED: INFLUENZA VACCINE (for 6+ mo) 0.5 ML DOSE IMVAC ONE (11:00)
[2020-12-06] MEDS ORDERED: KETOROLAC 30 MG/ML INJ IV PRN (19:33)
[2020-12-07] MEDS ORDERED: MAGNESIUM HYDROXIDE 8% 30 ML PO PRN (09:14)
--- NOTE | 2020-12-07 09:32 | DS ---
Hospital Course: Bc Bermeo postoperatively has done well. H and H with minimal hoyt ge. Lochia is normal. The patient has only had Toradol IV, nothing orally thus far. We will discon tinue her Green this morning and the IV, we will discontinue when she is ambulating a little bit bett er. She has no complaints or problems. Immunizations; flu shot, Tdap and COVID all discussed and en couraged. No postspinal block problems. She knows that if she is doing well, she can go home this a fternoon. If not, tomorrow morning. Dr. Whipple will dismiss her tomorrow. We will give her 50 mg of tramadol to take at home if she needs anything for pain. She has already called and made her appoint ment for next week to have her michael removed. She is not hungry this morning, but she knows that s he should drink a lot of liquids, otherwise she will get dehydrated. Doing well at this point. She has been dismissed verbally nursing order, but that depends upon whether the patient wishes to go [place] this afternoon or wait until tomorrow. Final Diagnoses: Intrauterine gestation at 29 weeks and 4 days, stillborn, breech, failed induction, at maternal request. Immunizations offered. GARRET/DEANN Voice ID: [id number] Report ID: [id number]
[2020-12-07] MEDS ORDERED: IBUPROFEN 600 MG TAB PO PRN (13:41)
[2020-12-07 16:44] VITALS: BP 93/54; TEMP 97.2
[2020-12-12 04:10] LABS: HBsAG Nonreactive (Nonreactive)
== END 2020-12-07 18:20 | disposition home or self-care (01) | DRG 787 ==
LOC: L&D 16:20 → 2ND-WC 16:53
PROVIDERS: ADMIT Specialist; ATTEND Specialist
PROC: 10D00Z1 Extraction of Products of Conception, Low, Open Approach (ICD-10-PCS; principal; 2020-12-06 08:29)
DX: O36.4XX0 Maternal care for intrauterine death, not applicable or unspecified (principal); G12.1 Other inherited spinal muscular atrophy; O32.1XX0 Maternal care for breech presentation, not applicable or unspecified; O61.9 Failed induction of labor, unspecified; Z3A.29 29 weeks gestation of pregnancy; Z37.1 Single stillbirth; Z20.822 Contact with and (suspected) exposure to COVID-19; Z23 Encounter for immunization
CPT/HCPCS: 36415; 76815; 81003; 85014; 85025; 86592; 86762; 86777; 86778; 86900; 86901; 87340; 88307; J0690; J2210; J2250; J2370; J2405; J2590; J2765; J7120; J7121; U0003